=== PATIENT | female | born 1960 | race Caucasian/White ===

== ENCOUNTER 2017-03-25 07:31 | Emergency (ER) | payer OTHER ==
[~2017-03-25] VITALS: Ht 165.1 cm; Wt 70.0 kg
[~2017-03-25 07:31] MED LIST: FLUO40CA12 PO; LAMO100T66 PO; ProAirHFA INH; RNT300T PO; XVIS2550 PO
[2017-03-25 07:34] VITALS: BP 113/69; PULSE 87; RESP 16; O2SAT 92
--- NOTE | 2017-03-25 07:43 | ED.REPORT ---
HPI-Headache Date of Service Mar 25, 2017 ED Provider: Sania Avalos Patient is a 56 year old female with a hx of cocaine abuse and bipolar disorder who presents to the ED complaining of headache onset 4 days ago. She recently got out of rehab. Her headache started on her last day of treatment and has persisted ever since. She describes her pain as constant, sharp and worse in the night and morning. Associated symptoms include nausea, chills, myalgia, sore throat, post-sinus drip, and dizziness (onset this morning while walking). She denies vomiting, fevers, vision changes, numbness, weakness, rash, or any other symptoms. She does not have a hx of migraines. She has taken ibuprofen with mild relief. Nursing Notes Stated Complaint: HEADACHE/SHARP PAINS/DIZZY Chief Complaint: Headache Nursing Notes Reviewed: Yes Allergies: Coded Allergies: No Known Allergies (Verified , 08/05/12) Scheduled Albuterol-Expunged Drug, Do Not Renew! (ProAir HFA-Expunged Drug, Do Not Renew! ) 200 Puff/8.5 Gm Hfa.aer.ad 2 PUFF INH Q4-6H For Wheezing or Shortness of Breath FLUoxetine-Expunged Drug, Do not Renew! (Prozac-Expunged Drug, Do not Renew!) 40 Mg Capsule 40 MG PO DAILY Hydroxyzine Sharon-Expunged Drug, Do Not Renew! (Vistaril-Expunged Drug, Do Not Renew!) 25 Mg Tab 25 MG PO HS Ranitidine Hcl (Zantac) 300 Mg Tab 300 MG PO DAILY lamoTRIgine-Expunged Drug, Do Not Renew! (lamoTRIgine-Expunged Drug, Do Not Renew!) 100 Mg Tab.er.24 100 MG PO DAILY General Time Seen by MD: 07:43 Chief Complaint Headache Hx Obtained From: Patient Arrived By: Walk-in Sudden in Onset?: Yes Onset Occurred: 4 days ago Symptom Duration: Since onset Similar Sx Previous: No Risk-Headache )( SAH Risk Stratification No Anticoagulation therapy, No Hypertension, No Polycystic kidney disease RF Statements: Risk factors reviewed )( IC Mass Risk Stratification No HIV RF Statements: Risk factors reviewed Past Medical History Past Medical History Bipolar Cocaine abuse anxiety Depression Reports: Asthma, COPD Past Surgical History Denies Smoking History Former Smoker Social History Drug Use: In recovery, Cocaine Ambulatory Status Independent Review of Systems Review of Systems Note: +postnasal drip Constitutional: Reports: Chills, Denies: Fever Ears / Nose / Throat: Reports: Sore throat GI: Reports: Nausea, Denies: Vomiting Musculoskeletal: Reports: Myalgia Skin: Denies Rash Neurologic: Reports: Dizziness, Headache, Denies: Numbness, Vision change, Weakness Complete sys rev & neg: except as marked. Physical Exam Initial Vital Signs Vital Signs (First) Date Time Temp Pulse Resp B/P Pulse Ox O2 Delivery O2 Flow Rate FiO2 03/25/17 07:34 36.7 87 16 113/69 92 Room Air Initial VS: Reviewed, Vital signs normal Respiratory: Breath sounds normal, Clear to auscultation, No respiratory distress Cardiovascular: Regular rate & rhythm, Heart sounds normal, Intact distal pulses Abdomen / GI: Soft, Non-tender Skin: Warm, Dry Psychiatric: Mood/affect normal, Behavior normal, Normal thought content General/Constitutional: Awake, Alert, Well developed Head / Eyes: Atraumatic, Normocephalic Neck: No adenopathy Neurologic: Oriented X3, Speech NL ENT: Pharynx NL Translumination normal for frontal and maxillary sinuses. Tenderness over both maxillary sinuses. Interpretation & Diagnostics Lab Results Interpretation Result Diagram: 03/25/17 0820 03/25/17 0820 Test 03/25/17 08:20 White Blood Count 6.1th/mm3 (3.8-10.1) Red Blood Count 5.39mil/mm3 (3.90-5.20) Hemoglobin 15.1g/dL (12.0-15.6) Hematocrit 45.8% (35.0-46.0) Mean Corpuscular Volume 85.0fL (81-100) Mean Corpuscular Hemoglobin 28.0pg (27.0-35.0) Mean Corpuscular Hemoglobin Concent 33.0% (32.0-37.0) Red Cell Distribution Width 12.9% (12.3-15.4) Platelet Count 277bil/L (150-400) Neutrophils (%) (Auto) 59.1% (40-74) Lymphocytes (%) (Auto) 26.5% (14-46) Monocytes (%) (Auto) 10.6% (4-12) Eosinophils (%) (Auto) 2.8% (0-5) Basophils (%) (Auto) 0.8% (0-3) Sodium Level 138mEq/L (134-144) Potassium Level 4.6mEq/L (3.5-5.2) Chloride Level 100mEq/L (97-108) Carbon Dioxide Level 25mmol/L (18-29) Blood Urea Nitrogen 12mg/dL (6-24) Creatinine 0.77mg/dL (0.57-1.00) Estimat Glomerular Filtration Rate 111mL/min (>59) Glucose Level 104mg/dL (60-99) Calcium Level 9.6mg/dL (8.5-10.1) CT Head Interpretation IMPRESSION: 1. No acute intracranial abnormality. Specifically, no subarachnoid hemorrhage, sinusitis or apparent etiology of frontal headache. Dictated by: Lan Yoo M.D. on 03/25/2017 at 8:11 Approved by: Lan Yoo M.D. on 03/25/2017 at 8:15 Study: Head CT no contrast Interpretation / Wet Read by: Interpret - Radiologist Re-Eval/Medical Decision Re-Evaluation/Progress : Time of Eval: 09:49 )( Patient Status: Condition improved Re-Evaluation/Progress Note: Rechecked patient. She is feeling better. Discussed plan for discharge. Patient understands and agrees with plan. All questions addressed at this time. Counseled Regarding: Diagnosis, Lab results, Need for follow-up, When/why to return to ED Discharge & Departure Impression: Primary Impression: Headache Headache type: unspecified Headache chronicity pattern: unspecified pattern Intractability: not intractable Qualified Code: R51 - Headache Ruled Out: Sinusitis, Intracranial hemorrhage, Brain tumor, Stroke Disposition: Home Discharge Condition All VS Reviewed: Yes Condition: Improved Additional Instructions: Thank you for entrusting us with your care. Your CT did not show evidence of a bleed, sinusitis, or stroke. Take Ibuprofen and drink plenty of fluids. Follow up with your primary doctor within the next week. Return to the emergency department if you experience numbness, weakness, vision changes, or any other new or concerning symptoms. Referrals: Danielle lOmedo MD (PCP) Scribe Attestation Portions of this note were transcribed by Christal Esquivel. IDr. Avalos personally performed the history, physical exam and medical decision-making; I reviewed and confirmed the accuracy of the information in the transcribed note. Signed by: Christal Esquivel 03/25/17, 1016 copies to: Danielle Olmedo MD, Shawna L MD Mar 25, 2017 07:43 CHRISTAL ESQUIVEL Mar 25, 2017 07:51
[2017-03-25] MEDS ORDERED: 0.9% Sodium Chloride 1,000 ML IV ONE (07:51)
[2017-03-25] MEDS ORDERED: Ondansetron 2 mg/mL 2 mL Inj IVPUSH ONE (07:55)
--- NOTE | 2017-03-25 08:16 | DRSVH ---
PROCEDURE: CT BRAIN WITHOUT CONTRAST ([id number]) INDICATIONS: new headache x4 days TECHNIQUE: Noncontrast 4.5 mm thick angled axial sections acquired from the foramen magnum to the vertex, with c oronal reformats. COMPARISON: CT brain 11/30/2015 FINDINGS: Image quality: Excellent. CSF spaces: Basal cisterns are patent. No extra-axial fluid collections. Ventricles are normal in size and shape. Brain: No midline shift. No intracranial masses or hemorrhage. Peck-white matter interface is norm al. Skull and face: Calvarium and visualized facial bones are intact, without suspicious lesions. Sinuses: Visualized sinuses and mastoids are clear. IMPRESSION: 1. No acute intracranial abnormality. Specifically, no subarachnoid hemorrhage, sinusitis or apparent etiology of frontal headache. Dictated by: Lan Yoo M.D. on 03/25/2017 at 8:11 Approved by: Lan Yoo M.D. on 03/25/2017 at 8:15
[2017-03-25 08:23] LABS: BASOPHILS % (AUTO) 0.8 % (0-3); EOSINOPHILS % (AUTO) 2.8 % (0-5); MONOCYTES % (AUTO) 10.6 % (4-12); NEUTROPHILS % (AUTO) 59.1 % (40-74); Platelet Count 277 bil/L (150-400)
[2017-03-25 10:18] VITALS: BP 100/67; PULSE 74; RESP 16; O2SAT 96
== END 2017-03-25 10:21 | disposition home or self-care (01) ==
LOC: SED 07:31
DX: R51 Headache (principal); F31.9 Bipolar disorder, unspecified; J45.909 Unspecified asthma, uncomplicated; J44.9 Chronic obstructive pulmonary disease, unspecified; F14.10 Cocaine abuse, uncomplicated; Z87.891 Personal history of nicotine dependence
CPT/HCPCS: 36415; 70450; 80048; 85025; 96361; 96374; 96375; 99285; J1200; J1885; J2405; J7030